=== PATIENT | male | born 1945 | race Caucasian/White ===

== ENCOUNTER 2016-08-26 13:08 | Emergency (ER) | payer MEDICARE ==
[2016-08-26 13:15] VITALS: BMI 25.8
[2016-08-26 13:19] VITALS: RESP 18; O2SAT 99
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
[2016-08-26] MEDS ORDERED: Sodium Chloride 0.9% 0 ML ONE (14:04)
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
[2016-08-26 17:04] VITALS: BP 135/75; PULSE 59; TEMP 98.1
--- NOTE | 2016-08-29 11:37 | CARD ---
APPROVED REPORT EKG Measurement Heart [id number] <Conclusion> Normal sinus rhythm Normal ECG
== END 2016-08-26 17:04 | disposition home or self-care (01) ==
LOC: C.ER 13:08
DX: S20.219A Contusion of unspecified front wall of thorax, initial encounter (principal); S50.01XA Contusion of right elbow, initial encounter; M25.512 Pain in left shoulder; Y04.2XXA Assault by strike against or bumped into by another person, initial encounter; Y92.9 Unspecified place or not applicable; R91.1 Solitary pulmonary nodule
CPT/HCPCS: 71020; 72125; 73030; 73080; 96372; 99285; J1885